=== PATIENT | female | born 1995 | race American Indian/Alaskan Native ===

== ENCOUNTER 2018-12-25 12:34 | Outpatient (CLI) | payer MEDICAID, OTHER ==
[2018-12-25] MEDS ORDERED: LACTATED RINGERS 1,000 ML ONE (14:15)
[2018-12-25 14:49] LABS: Hematocrit 35.3 % (30.3-42.9); Hemoglobin 12.1 gm/dl (10.1-14.3); Mean Corpuscular HGB Conc 34 % (30-34); Mean Corpuscular Volume 89 fl (79-97); Platelet Count 288 K/mm3 (140-440); Red Blood Count 3.98 M/mm3 (3.65-5.03); Red Cell Distribution Width 13.4 % (13.2-15.2)
[2018-12-25] MEDS ORDERED: SODIUM CHLORIDE 0.9% 500 ML 500 ML IV ONE (14:58)
[2018-12-25 15:05] LABS: Bacteria,Urine 4+ /HPF (Negative); Bilirubin,Urine NEG (Negative); Blood,Urine NEG (Negative); Color,Urine Yellow (Yellow); Protein,Urine <15 mg/dL mg/dL (Negative); Urobilinogen,Urine < 2.0 mg/dL (<2.0)
[2018-12-25 15:20] LABS: Alanine Aminotransferase 11 units/L (7-56); Uric Acid 3.3 mg/dL (3.5-7.6)
[2018-12-25 16:05] VITALS: BP 137/83
[2018-12-25] MEDS ORDERED: LACTATED RINGERS 1,000 ML IV ONE (18:00)
== END 2018-12-25 14:40 | disposition home or self-care (01) ==
LOC: TRG 12:34
PROVIDERS: ATTEND Obstetrics & Gynecology
DX: O13.3 Gestational [pregnancy-induced] hypertension without significant proteinuria, third trimester (principal); O47.03 False labor before 37 completed weeks of gestation, third trimester; Z3A.35 35 weeks gestation of pregnancy
CPT/HCPCS: 36415; 59025; 81001; 82565; 83615; 84450; 84460; 84550; 85027; J7120; 96360

== ENCOUNTER 2018-12-29 13:59 | Inpatient (IN) | payer MEDICAID ==
[2018-12-29 14:32] LABS: Hematocrit 35.1 % (30.3-42.9); Hemoglobin 11.8 gm/dl (10.1-14.3); Mean Corpuscular HGB Conc 34 % (30-34); Mean Corpuscular Volume 89 fl (79-97); Platelet Count 300 K/mm3 (140-440); Red Blood Count 3.95 M/mm3 (3.65-5.03); Red Cell Distribution Width 13.5 % (13.2-15.2)
[2018-12-29 14:49] LABS: Bacteria,Urine 2+ /HPF (Negative); Bilirubin,Urine NEG (Negative); Blood,Urine NEG (Negative); Color,Urine Straw (Yellow); Mucus,Urine FEW /HPF; Protein,Urine <15 mg/dL mg/dL (Negative); Urobilinogen,Urine < 2.0 mg/dL (<2.0)
[2018-12-29] MEDS ORDERED: BUTALB/ACETAMINOPHEN/CAFFEINE TAB PO PRN (14:54)
[2018-12-29 15:05] LABS: Alanine Aminotransferase 11 units/L (7-56); Uric Acid 3.5 mg/dL (3.5-7.6)
[2018-12-29] MEDS ORDERED: TERBUTALINE 1 MG/1 ML INJ IVP PRN (15:30)
[2018-12-29] MEDS ORDERED: ePHEDrine SULFATE 50 MG/1 ML INJ IV PRN (15:30)
[2018-12-29] MEDS ORDERED: ONDANSETRON 4 MG/2 ML INJ IV PRN (15:30)
[2018-12-29] MEDS ORDERED: fentaNYL 100 MCG/2 ML INJ IV PRN (15:30)
[2018-12-29] MEDS ORDERED: TERBUTALINE 1 MG/1 ML INJ SUB-Q PRN (15:30)
[2018-12-29] MEDS ORDERED: BUTORPHANOL 2 MG/1 ML INJ IV PRN (15:30)
[2018-12-29] MEDS ORDERED: MINERAL OIL 30 ML ORAL LIQD PO PRN (15:30)
[2018-12-29] MEDS ORDERED: NALOXONE 0.4 MG/1 ML INJ IV PRN (15:30)
[2018-12-29] MEDS ORDERED: OXYTOCIN 20 UNIT/1000ML DRIP 20 UNITS/1,000 ML BAG IV SCH (16:00)
[2018-12-29] MEDS ORDERED: AMPICILLIN/NS 2 GM/100 ML 2 GM/100 ML BAG IV ONE (16:00)
[2018-12-29] MEDS ORDERED: hydrALAZINE 20 MG/1 ML INJ IV PRN (16:18)
[2018-12-29] MEDS ORDERED: LIDOCAINE (2%) 20 MG/1 ML VIAL 20 ML MDV INFILTRATI ONE (16:30)
[2018-12-29] MEDS ORDERED: DINOPROSTONE 10 MG VAG SUPP VG ONE (16:30)
[2018-12-29] MEDS ORDERED: CALCIUM GLUCONATE 1000 MG/10 ML INJ IV ONE (17:00)
[2018-12-29] MEDS ORDERED: LACTATED RINGERS 1,000 ML IV SCH (17:00)
[2018-12-29] MEDS ORDERED: MAGNESIUM SULFATE 4 GM/100 ML BAG IV ONE (17:00)
[2018-12-29] MEDS: LACTATED RINGERS 1,000 ML IV SCH (17:52)
--- NOTE | 2018-12-29 18:04 | History and Physical Report ---
History of Present Illness Date of examination: 12/29/18 Date of admission: 12/29/18 16:20 Chief complaint: headache History of present illness: Pt is a 23 year old -[place] primigravida LAWANDA 01/18/19 at 37w1d who presents with headache since last night blood pressures in triage from 140-180s/70-100s. She denies blurry vision or RUQ pain. 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 She is GBS positive. Past History Past Medical History: no pertinent history Past Surgical History: other (knee surgery, ACL repair) [employer] History: abnormal PAP smear, chlamydia (remote from ), trichomonas (remote from ) Family/Genetic History: diabetes, heart disease, hypertension, cancer Social history: no significant social history - Obstetrical History Expected Date of Delivery: 01/18/19 Actual Gestation: 37 Week(s) 1 Day(s) : 1 Medications and Allergies Allergies Allergy/AdvReac Type Severity Reaction Status Date / Time pollen extracts Allergy Shortness Verified 12/25/18 13:26 of Breath Home Medications Medication Instructions Recorded Confirmed Last Taken Type HYDROcodone/APAP 5-325 [Douglas 1 each PO Q6HR PRN #12 tablet 08/09/14 Unknown Rx 5/325] Promethazine [Phenergan] 25 mg PO Q6H PRN #12 tablet 08/09/14 Unknown Rx raNITIdine HCl [Ranitidine] 150 mg PO Q12H #30 tablet 08/09/14 Unknown Rx One Daily Tablet 1 tab PO DAILY 12/25/18 12/25/18 12/23/18 12:00 History 1 tab Active Meds: Active Medications Acetaminophen/Butalbital/Caffeine (Fioricet) 2 tab PO Q4H PRN PRN Reason: Headache Last Admin: 12/29/18 15:10 Dose: 2 tab Documented by: Butorphanol Tartrate (Stadol) 2 mg IV Q2H PRN PRN Reason: Pain , Severe (7-10) Ephedrine Sulfate (Ephedrine Sulfate) 10 mg IV Q2M PRN PRN Reason: Hypotension Fentanyl (Sublimaze) 100 mcg IV Q2H PRN PRN Reason: Labor Pain Hydralazine HCl (Apresoline) 5 mg IV Q30MIN PRN PRN Reason: Hypertension Oxytocin/Sodium Chloride (Pitocin/Ns 20 Unit/1000ml Drip) 20 units in 1,000 mls @ 125 mls/hr IV DIRECT DEANA Oxytocin/Sodium Chloride (Pitocin/Ns 30 Unit/500ml) 30 units in 500 mls @ 2 mls/hr IV TITR DEANA; Protocol Lactated Ringer's (Lactated Ringers) 1,000 mls @ 125 mls/hr IV DIRECT DEANA Last Admin: 12/29/18 17:52 Dose: 125 mls/hr Documented by: Ampicillin Sodium (Ampicillin/Ns 1 Gm/50 Ml) 1 gm in 50 mls @ 100 mls/hr IV Q4H DEANA; Protocol Lactated Ringer's (Lactated Ringers) 1,000 mls @ 125 mls/hr IV DIRECT DEANA Magnesium Sulfate (Magnesium Sulfate 40gm/1000ml) 40 gm in 1,000 mls @ 50 mls/hr IV DIRECT DEANA Mineral Oil (Mineral Oil) 30 ml PO QHS PRN PRN Reason: Constipation Naloxone HCl (Naloxone) 0.1 mg IV Q2MIN PRN PRN Reason: Res Rate </= 8 or 02 SAT < 92% Ondansetron HCl (Zofran) 4 mg IV Q8H PRN PRN Reason: Nausea And Vomiting Terbutaline Sulfate (Brethine) 0.25 mg SUB-Q ONCE PRN PRN Reason: Hyperstimulation/Hypertonicity Terbutaline Sulfate (Brethine) 0.25 mg IVP ONCE PRN PRN Reason: Hyperstimulation/Hypertonicity Review of Systems All systems: negative - Vital Signs Vital signs: Vital Signs Pulse BP 82 138/77 12/29/18 14:28 12/29/18 14:28 Temp Pulse Resp BP Pulse Ox 98.1 F 87 18 177/100 91 12/29/18 14:33 12/29/18 16:15 12/29/18 15:10 12/29/18 16:15 12/29/18 15:55 - Physical Exam Breasts: Positive: deferred Cardiovascular: Regular rate Lungs: Positive: Clear to auscultation Abdomen: Positive: soft (obese, gravid) Genitourinary (Female): Positive: normal external genitalia Uterus: Positive: enlarged (gravid) Extremities: Positive: edema (trace) - Obstetrical FHR: auscultation normal Uterine Contraction Monitor Mode: External Cervical Dilatation: 0.5 Uterine Contraction Pattern: Irregular Uterine Tone Measurement Phase: Resting Uterine Contraction Intensity: Mild Results Result Diagrams: 12/29/18 14:12 12/29/18 14:12 Abnormal lab results 12/29/18 12/29/18 12/29/18 Range/Units 14:12 14:12 Unknown WBC 11.5 H (4.5-11.0) K/mm3 Creatinine 0.6 L (0.7-1.2) mg/dL Lactate Dehydrogenase 197 H (91-180) units/L Urine pH 8.0 H (5.0-7.0) All other labs normal. Assessment and Plan A: IUP at 37w1d PIH with severe features Obesity GBS positive P: Admit to labor and delivery Magnesium sulfate for seizure prophylaxis PIH panel GBS prophylaxis Begin induction of labor with cervidil Closely monitor clinical status
[2018-12-29] MEDS: MAGNESIUM SULFATE 40GM/1000ML 40 GM/1,000 ML BAG IV SCH (18:26)
[2018-12-30] MEDS ORDERED: FAMOTIDINE 20 MG/2 ML INJ IV ONE ×3 (00:01→21:24)
[2018-12-30] MEDS: LACTATED RINGERS 1,000 ML IV SCH (06:40)
[2018-12-30] MEDS ORDERED: miSOPROStol 25 MCG TAB VG ONE (07:45)
--- NOTE | 2018-12-30 09:26 | Event Note ---
Date: 12/30/18 Pt very uncomfortable with contractions. Category II tracing. SVE: 3.5/90/- 2/BBOW. Continue routine intrapartum care. Epidural for pain control. Continue to monitor clinically.
[2018-12-30] MEDS ORDERED: ePHEDrine SULFATE 50 MG/1 ML INJ IV PRN (09:33)
[2018-12-30] MEDS ORDERED: NALOXONE 2 MG/2 ML INJ IV PRN (09:33)
--- NOTE | 2018-12-30 09:33 | Anesthesia Consultation ---
Anesthesia Consult and Med Hx Date of service: 12/30/18 - Airway Anesthetic Teeth Evaluation: Good ROM Head & Neck: Adequate Mental/Hyoid Distance: Adequate Mallampati Class: Class II Intubation Access Assessment: Probably Good - Pulmonary Exam CTA: Yes - Cardiac Exam Cardiac Exam: RRR - Pre-Operative Health Status ASA Pre-Surgery Classification: ASA3 Proposed Anesthetic Plan: Epidural - Pulmonary Hx Asthma: No COPD: No Hx Pneumonia: No - Cardiovascular System Hx Hypertension: Yes (PIH) - Central Nervous System Hx Seizures: No Hx Psychiatric Problems: No - Endocrine Hx Renal Disease: No Hx End Stage Renal Disease: No Hx Hypothyroidism: No Hx Hyperthyroidism: No - Hematic Hx Anemia: No Hx Sickle Cell Disease: No - Other Systems Hx Alcohol Use: Yes (social use prior to )
[2018-12-30 09:54] LABS: Hematocrit 35.7 % (30.3-42.9); Hemoglobin 11.9 gm/dl (10.1-14.3); Mean Corpuscular HGB Conc 33 % (30-34); Mean Corpuscular Volume 89 fl (79-97); Platelet Count 301 K/mm3 (140-440); Red Blood Count 4.01 M/mm3 (3.65-5.03); Red Cell Distribution Width 13.4 % (13.2-15.2)
[2018-12-30] MEDS ORDERED: SODIUM CHLORIDE P/F VIAL 10 ML 10 ML ONE (09:55)
[2018-12-30] MEDS ORDERED: DEXMEDETOMIDINE 200 MCG/2 ML VIAL IV ONE ×3 (09:55→18:01)
[2018-12-30 10:16] LABS: Basophils # (Auto) 0.1 K/mm3 (0.0-0.1); Basophils % (Auto) 0.4 % (0.0-1.8); Lymphocytes # (Auto) 1.3 K/mm3 (1.2-5.4); Lymphocytes % (Auto) 7.3 % (13.4-35.0); Monocytes # (Auto) 0.8 K/mm3 (0.0-0.8); Monocytes % (Auto) 4.3 % (0.0-7.3)
[2018-12-30] MEDS: fentaNYL-BUPIV 2 MCG/ML-0.125% 200 MCG/100 ML BAG EPIDURAL SCH ×2 (11:00→18:01)
[2018-12-30] MEDS: AMPICILLIN/NS 1 GM/50 ML 1 GM/50 ML BAG IV SCH ×2 (12:51→18:41)
[2018-12-30] MEDS: MAGNESIUM SULFATE 40GM/1000ML 40 GM/1,000 ML BAG IV SCH (13:00)
[2018-12-30] MEDS: OXYTOCIN DRIP 30 UNITS/500 ML BAG IV SCH ×2 (14:16→14:57)
[2018-12-30] MEDS ORDERED: BUPIVACAINE/PF (0.5%) 5 MG/1 ML 30 ML VIAL INFILTRATI ONE (18:01)
[2018-12-30] MEDS ORDERED: SODIUM CHLORIDE 0.9% 1000 ML 1,000 ML ONE (20:54)
--- NOTE | 2018-12-30 21:17 | Event Note ---
Date: 12/30/18 Pt uncomfortable with epidural. SVE: /-1. heart tones with repetitive late decelerations. Plan to proceed with delivery. Anesthesia aware.
[2018-12-30] MEDS ORDERED: METOCLOPRAMIDE 10 MG/2 ML INJ IV ONE (21:20)
[2018-12-30] MEDS ORDERED: BICITRA ORAL LIQD 30ML PO ONE (21:20)
[2018-12-30] MEDS ORDERED: METOCLOPRAMIDE 10 MG/2 ML INJ ONE (21:24)
[2018-12-30] MEDS ORDERED: BICITRA ORAL LIQD 30ML ONE (21:24)
[2018-12-30] MEDS ORDERED: miSOPROStol 200 MCG TAB ONE (21:27)
[2018-12-30] MEDS ORDERED: ceFAZolin/STERILE WATER 2 GM/20 ML SYRINGE IV ONE (21:35)
[2018-12-30] MEDS ORDERED: SODIUM CHLORIDE 0.9% IRR 1,500 ML BOTTLE IR ONE (21:35)
[2018-12-30] MEDS ORDERED: WATER FOR IRRIG STERILE 1,500 ML BOTTLE IR ONE (21:35)
[2018-12-30] MEDS ORDERED: OXYTOCIN 10 UNIT/1 ML INJ ONE (21:48)
[2018-12-30] MEDS ORDERED: KETOROLAC 30 MG/1 ML INJ ONE (21:48)
[2018-12-30] MEDS ORDERED: LACTATED RINGERS 1,000 ML IV SCH (22:00)
[2018-12-30] MEDS ORDERED: OXYTOCIN 20 UNIT/1000ML DRIP 20 UNITS/1,000 ML BAG IV SCH (22:00)
[2018-12-30] MEDS ORDERED: ceFAZolin/Water 2 GM/20 ML 2 GM/20 ML SYRINGE IV NR (22:00)
[2018-12-30] MEDS: OXYTOCIN 20 UNIT/1000ML DRIP 20 UNITS/1,000 ML BAG IV SCH (22:05)
[2018-12-30] MEDS ORDERED: CARBOPROST TROMETHAMINE 250 MCG/1 ML INJ IM ONE (22:08)
--- NOTE | 2018-12-30 22:54 | Operative Report ---
Operative Report Operative Report: Date of procedure: December Preoperative diagnosis: 1) IUP at 37w1d 2) Nonreassuring status 3)Pr eeclampsia with severe features 4) Obesity Postoperative diagnosis: Same Procedure:Primary low transverse section Surgeon: Cassy Louis M.D. Anesthesia: Regional Findings: 1) Viable male , Apgars 8 and 9, weight 3315g, (7 lb 5 oz) in cephalic presentation. Occiput posterior. Nuchal cord x 1. 2) Normal-appearing uterus ovaries and tubes Estimated blood loss: 700 mL IV fluids:600 mL Urine output: 300 mL, clear at the end of the procedure Drains: Garcia to gravity Specimens: Placenta to pathology Complications: Counts correct x 3 Disposition: Stable to PACU Indication for procedure: Pt is a 23 year old primigravida at 37w2d who was admitted for induction of labor secondary to preeclampsia with severe features. She progressed to 8 cm then began to have repetitive late decelerations. The decision was made to proceed to delivery. Operation in detail: After the risks, benefits, alternatives and complications were explained to the patient she gave informed consent for the procedure. She was subsequently taken to the operating room where regional anesthesia was noted to be adequate. She was subsequently placed in the dorsal supine position with leftward tilt and prepped and draped in a normal sterile fashion. heart tones were noted prior to incision. A timeout was performed. A Pfannenstiel skin incision was made with the knife and carried down to the layer of the fascia with the Bovie. The fascia was incised in the midline and the fascial incision was extended bilaterally with the Bovie. The fascial incision was then stretched. The rectus muscles were then in the midline. The peritoneum was then entered bluntly. The peritoneal incision was extended with good visualization of the bladder. The peritoneal incision was th en stretched. An Emerson retractor was placed. The bladder blade was placed. The vesicouterine peritoneum was grasped with smooth pickups and incised with Metzenbaum scissors. Metzenbaum scissors were used to extend the incision bilaterally. The bladder flap was then created digitally and the bladder blade was replaced. A transverse incision was made in the lower uterine segment with a knife and extended bilaterally with the bandage scissors. The head was delivered without difficulty followed by shoulders and body. was bulb suctioned at delivery. The cord was clamped and cut and the was handed to NICU staff in attendance. Cord blood was collected. The placenta was then delivered manually. The uterus was then cleared of all clots and debris. The hysterotomy was then reapproximated with 0 Vicryl in a running locked fashion. A second layer of the same suture was used in an imbricating fashion. The hysterotomy was inspected and hemostasis was noted. The gutters were irrigated and cleared of all clots and debris. The hysterotomy was again inspected and noted to be hemostatic. Surgicel was placed over the hysterotomy. The peritoneum was reapproximated with 2-0 Vicryl in a running fashion incorporating the rectus muscles. The fascia was reapproximated with 0-Vicryl in a running fashion. The subcutaneous tissue was reapproximated with 3-0 Vicryl in a running fashion. The skin was reapproximated with 4-0 Vicryl in a subcuticular fashion. The incision was then covered with steri strips and a pressure dressing. The procedure was then ended. The patient tolerated the procedure well and was taken to the PACU in stable condition. All instrument, lap, and needle counts were correct 3.
--- NOTE | 2018-12-30 22:54 | Procedure Note ---
OB Delivery Note - Delivery Date of Delivery: 12/30/18 Surgeon: GIAN BERGER Estimated blood loss: other (700 mL) - Section Preop diagnosis: nonreassuring FHR tracing Postop diagnosis: same section procedure: section, primary low transverse Disposition: PACU Narrative: Please see operative report. - Infant A at 1 minute: 8 at 5 minutes: 9 Gender: Male (3315g (7lb 5oz) @ 2202 pm)
[2018-12-30] MEDS ORDERED: NalbUPHINE 10 MG/1 ML INJ IV PRN (22:56)
--- NOTE | 2018-12-30 22:56 | Post Anesthesia Evaluation ---
- Post Anesthesia Evaluation Patient Participated: Yes Airway Patent: Yes Stable Respiratory Function: Yes Nausea/Vomiting: No Temp > 96.8F: Yes Pain Manageable: Yes Adequeate Hydration: Yes Anesthesia Complications: No Block Receding Appropriately: Yes
[2018-12-30] MEDS ORDERED: ACETAMINOPHEN 500 MG TAB PO SCH (23:00)
[2018-12-31] MEDS ORDERED: MORPHINE 4 MG/1 ML INJ IV PRN (00:09)
[2018-12-31] MEDS ORDERED: LANOLIN/ZINC/DIMETHICONE (LANSINOH) 7 GM TP PRN (00:09)
[2018-12-31] MEDS ORDERED: WITCH HAZEL/ GLYCERIN PAD TP PRN (00:09)
[2018-12-31] MEDS ORDERED: NALOXONE 0.4 MG/1 ML INJ IV PRN (00:09)
[2018-12-31] MEDS: OXYTOCIN 20 UNIT/1000ML DRIP 20 UNITS/1,000 ML BAG IV SCH (01:04)
[2018-12-31] MEDS: KETOROLAC 30 MG/1 ML INJ IV SCH ×4 (01:05→17:57)
[2018-12-31 02:06] LABS: Hematocrit 33.3 % (30.3-42.9); Hemoglobin 11.2 gm/dl (10.1-14.3); Mean Corpuscular HGB Conc 34 % (30-34); Mean Corpuscular Volume 90 fl (79-97); Platelet Count 330 K/mm3 (140-440); Red Blood Count 3.72 M/mm3 (3.65-5.03); Red Cell Distribution Width 13.4 % (13.2-15.2)
[2018-12-31 02:19] LABS: Alanine Aminotransferase 8 units/L (7-56)
[2018-12-31] MEDS ORDERED: MAGNESIUM SULFATE 40GM/1000ML 40 GM/1,000 ML BAG IV SCH (03:26)
[2018-12-31 03:27] LABS: Uric Acid 5.4 mg/dL (3.5-7.6)
--- NOTE | 2018-12-31 09:21 | Progress Note ---
Assessment and Plan A/P POD2 severe pree on mag continue for 24 hr PP on mag continue following mag level UA and cbc this am Subjective - Subjective Date of service: 12/31/18 Principal diagnosis: [facility] Patient reports: appetite normal, voiding normally, pain well controlled, flatus : doing well Objective - Vital Signs Latest vital signs: Vital Signs Temp Pulse Resp BP BP Pulse Ox 12/31/18 09:13 86 96 12/31/18 09:08 90 96 12/31/18 09:03 100 H 136/85 96 12/31/18 08:58 88 96 12/31/18 08:53 89 96 12/31/18 08:48 111 H 97 12/31/18 08:43 93 H 95 12/31/18 08:38 88 97 12/31/18 08:33 93 H 139/73 95 12/31/18 08:28 97 H 96 12/31/18 08:23 89 97 12/31/18 08:18 84 97 12/31/18 08:13 113 H 97 12/31/18 08:08 70 98 12/31/18 08:03 90 128/66 96 12/31/18 07:58 85 96 12/31/18 07:53 92 H 98 12/31/18 07:48 89 97 12/31/18 07:43 89 95 12/31/18 07:38 85 97 12/31/18 07:33 97 H 146/83 96 12/31/18 07:28 94 H 97 12/31/18 07:23 85 97 12/31/18 07:18 84 97 12/31/18 07:13 93 H 97 12/31/18 07:08 77 96 12/31/18 07:03 83 139/79 96 12/31/18 06:58 85 97 12/31/18 06:53 82 98 12/31/18 06:52 97 H 94 12/31/18 06:48 87 97 12/31/18 06:43 83 98 12/31/18 06:38 82 18 98 12/31/18 06:35 78 143/67 12/31/18 06:34 85 161/74 12/31/18 06:33 85 97 12/31/18 06:28 81 98 12/31/18 06:23 87 98 12/31/18 06:18 83 98 12/31/18 06:13 79 98 12/31/18 06:08 90 98 12/31/18 06:03 86 125/72 98 12/31/18 05:58 80 97 12/31/18 05:53 87 97 12/31/18 05:48 85 93 12/31/18 05:47 85 0 L 12/31/18 05:36 105 H 97 12/31/18 05:33 96 H 131/61 12/31/18 05:25 83 96 12/31/18 05:24 77 0 L 12/31/18 05:20 90 100 12/31/18 05:15 87 98 12/31/18 05:14 82 92 12/31/18 05:10 90 93 12/31/18 05:08 88 92 12/31/18 05:05 87 99 12/31/18 05:03 96 H 138/76 12/31/18 05:00 83 98 12/31/18 04:55 89 94 12/31/18 04:51 84 94 12/31/18 04:50 85 94 12/31/18 04:45 86 95 12/31/18 04:40 82 95 12/31/18 04:35 81 95 12/31/18 04:33 78 135/70 12/31/18 04:30 80 96 12/31/18 04:25 77 96 12/31/18 04:20 78 97 12/31/18 04:15 88 97 12/31/18 04:10 83 97 12/31/18 04:05 77 99 12/31/18 04:03 72 141/79 12/31/18 04:00 92 H 98 12/31/18 03:55 83 98 12/31/18 03:52 86 74 L 12/31/18 03:50 75 100 12/31/18 03:45 86 99 12/31/18 03:40 88 100 12/31/18 03:35 89 97 12/31/18 03:33 82 131/67 12/31/18 03:30 84 96 12/31/18 03:25 83 95 12/31/18 03:20 89 96 12/31/18 03:15 89 95 12/31/18 03:10 88 96 12/31/18 03:06 85 94 12/31/18 03:05 91 H 97 12/31/18 03:03 84 137/72 12/31/18 03:00 88 97 12/31/18 02:55 86 97 12/31/18 02:50 87 96 12/31/18 02:45 78 97 12/31/18 02:40 92 H 97 12/31/18 02:35 78 97 12/31/18 02:33 99 H 136/81 12/31/18 02:32 98.6 F 99 H 18 136/81 97 12/31/18 02:03 83 124/65 12/31/18 01:33 76 144/81 12/31/18 01:05 18 12/30/18 23:50 98.7 F 74 17 119/69 98 12/30/18 23:45 82 15 116/76 97 12/30/18 23:30 82 15 116/70 99 12/30/18 23:15 75 18 124/65 100 12/30/18 23:11 79 26 H 132/57 98 12/30/18 23:06 87 16 125/56 96 12/30/18 23:01 80 10 L 115/50 99 12/30/18 22:50 98.7 F 85 22 105/53 100 12/30/18 21:17 78 100 12/30/18 21:12 95 H 100 12/30/18 21:09 88 120/65 12/30/18 21:07 82 99 12/30/18 21:02 89 100 12/30/18 20:57 92 H 100 12/30/18 20:54 78 115/59 12/30/18 20:52 85 100 12/30/18 20:47 71 100 12/30/18 20:42 68 99 12/30/18 20:40 72 116/61 12/30/18 20:37 75 99 12/30/18 20:32 74 100 12/30/18 20:27 83 95 12/30/18 20:25 69 118/67 12/30/18 20:22 73 99 12/30/18 20:17 69 96 12/30/18 20:12 66 97 12/30/18 20:10 68 109/53 12/30/18 20:07 76 100 12/30/18 20:02 72 100 12/30/18 20:01 75 77 L 12/30/18 19:57 70 98 11/24/19 19:55 74 124/65 12/30/18 19:52 72 110/58 96 12/30/18 19:51 70 16 110/58 97 12/30/18 19:47 66 99 12/30/18 19:42 68 97 12/30/18 19:37 76 96 12/30/18 19:32 70 98 12/30/18 19:27 71 99 12/30/18 19:24 71 100/55 12/30/18 19:22 64 100 12/30/18 19:17 72 99 12/30/18 19:15 97.4 F L 12/30/18 19:12 66 95 12/30/18 19:09 62 101/50 12/30/18 19:07 66 95 12/30/18 19:04 68 95/52 12/30/18 19:02 66 97 12/30/18 18:59 65 92/51 12/30/18 18:57 66 95 12/30/18 18:54 65 94 12/30/18 18:53 64 88/51 12/30/18 18:52 60 85/45 96 12/30/18 18:51 64 83/41 12/30/18 18:48 63 90/51 12/30/18 18:47 76 99 12/30/18 18:42 71 98 12/30/18 18:41 71 121/59 12/30/18 18:37 73 95 12/30/18 18:32 87 98 12/30/18 18:27 83 96 12/30/18 18:22 94 H 98 12/30/18 18:18 87 94 12/30/18 18:17 87 95 12/30/18 18:12 81 97 12/30/18 18:11 85 134/83 12/30/18 18:07 94 H 97 12/30/18 18:02 91 H 99 12/30/18 17:57 80 99 12/30/18 17:52 89 98 12/30/18 17:47 84 98 12/30/18 17:46 81 136/78 12/30/18 17:42 81 99 12/30/18 17:37 81 99 12/30/18 17:32 96 H 97 12/30/18 17:27 82 99 12/30/18 17:22 83 99 12/30/18 17:17 84 99 12/30/18 17:14 100 H 91 12/30/18 17:12 101 H 96 12/30/18 17:09 99 H 93 12/30/18 17:07 104 H 95 12/30/18 17:03 99 H 91 12/30/18 17:02 96 H 96 12/30/18 16:57 100 H 98 12/30/18 16:52 98 H 97 12/30/18 16:51 98 H 94 12/30/18 16:47 109 H 95 12/30/18 16:43 102 H 134/63 12/30/18 16:42 94 H 100 12/30/18 16:37 94 H 99 12/30/18 16:32 98 H 99 12/30/18 16:27 109 H 99 12/30/18 16:22 91 H 99 12/30/18 16:17 92 H 98 12/30/18 16:14 105 H 93 12/30/18 16:12 100 H 95 12/30/18 16:08 94 H 92 12/30/18 16:07 92 H 98 12/30/18 16:03 102 H 91 12/30/18 16:02 89 97 12/30/18 15:57 90 96 12/30/18 15:52 89 98 12/30/18 15:47 87 93 12/30/18 15:46 86 93 12/30/18 15:42 100 H 98 12/30/18 15:41 89 116/56 12/30/18 15:40 84 94 12/30/18 15:37 83 96 12/30/18 15:32 87 96 12/30/18 15:27 80 96 12/30/18 15:22 78 97 12/30/18 15:17 80 97 12/30/18 15:12 80 96 12/30/18 15:07 95 H 96 12/30/18 15:02 85 96 12/30/18 14:57 76 96 12/30/18 14:52 89 96 12/30/18 14:47 77 95 12/30/18 14:45 78 94 12/30/18 14:42 76 129/58 95 12/30/18 14:37 79 95 12/30/18 14:32 74 95 12/30/18 14:27 91 H 96 12/30/18 14:22 80 95 12/30/18 14:17 83 96 12/30/18 14:12 91 H 96 12/30/18 14:07 81 96 12/30/18 14:02 74 96 12/30/18 13:57 82 96 12/30/18 13:52 95 H 96 12/30/18 13:47 74 96 12/30/18 13:43 77 123/63 12/30/18 13:42 80 96 12/30/18 13:37 75 97 12/30/18 13:32 70 96 12/30/18 13:27 83 95 12/30/18 13:22 77 96 12/30/18 13:17 74 100 12/30/18 13:12 67 99 12/30/18 13:10 98.1 F 12/30/18 13:07 81 99 12/30/18 13:02 72 99 12/30/18 12:57 69 98 12/30/18 12:52 72 96 12/30/18 12:47 70 98 12/30/18 12:42 69 98 12/30/18 12:37 70 98 12/30/18 12:32 79 98 12/30/18 12:27 68 98 12/30/18 12:22 68 99 12/30/18 12:17 66 99 12/30/18 12:13 70 94 12/30/18 12:12 69 95 12/30/18 12:07 76 96 12/30/18 12:02 77 96 12/30/18 11:59 71 102/50 12/30/18 11:57 79 97 12/30/18 11:52 73 97 12/30/18 11:47 74 98 12/30/18 11:44 79 130/56 12/30/18 11:42 74 100 12/30/18 11:40 18 118/61 12/30/18 11:37 88 100 12/30/18 11:32 66 98 12/30/18 11:27 76 90/46 100 12/30/18 11:22 72 100 12/30/18 11:17 79 100 12/30/18 11:12 79 98 12/30/18 11:07 80 98 12/30/18 11:04 78 83 L 12/30/18 11:02 78 87 12/30/18 10:59 78 93 12/30/18 10:57 83 100 12/30/18 10:52 86 95 12/30/18 10:51 80 94 12/30/18 10:47 85 98 12/30/18 10:42 86 111/58 97 12/30/18 10:37 86 97 12/30/18 10:34 81 127/57 12/30/18 10:32 89 94 12/30/18 10:31 91 H 109/56 12/30/18 10:27 87 95 12/30/18 10:26 91 H 94 12/30/18 10:25 87 118/61 12/30/18 10:22 100 H 125/68 12/30/18 10:21 97 H 97 12/30/18 10:19 103 H 122/65 12/30/18 10:16 100 H 123/67 97 12/30/18 10:13 102 H 139/87 12/30/18 10:11 98 H 98 12/30/18 10:06 100 12/30/18 09:59 93 H 99 12/30/18 09:54 89 99 12/30/18 09:49 97 H 100 12/30/18 09:44 104 H 97 12/30/18 09:41 96 H 119/72 12/30/18 09:39 94 H 98 12/30/18 09:34 105 H 99 12/30/18 09:29 100 H 98 12/30/18 09:24 98 H 98 12/30/18 09:19 102 H 98 Intake and Output 12/30/18 12/31/18 12/31/18 23:59 07:59 15:59 Intake Total 826.867 4.167 Output Total 850 1150 Balance -23.133 -1145.833 Intake: IV 826.867 4.167 PITOCin/NS 20 UNIT/1000ML 4.167 DRIP 20 units In 1,000 ml @ 250 mls/hr IV DIRECT DEANA Rx#:[id number] PITOCin/NS 30 UNIT/500ML 26.867 30 units In 500 ml @ 2 mls/hr IV TITR DEANA Rx#: [id number] Output: Urine 850 1150 Indwelling Catheter 1150 Other: Total, Output Amount 400 Estimated Blood Loss 700 - Exam Breasts: Present: normal Cardiovascular: Present: Regular rate, Normal S1 Lungs: Present: Clear to auscultation, Normal air movement Abdomen: Present: normal appearance, soft, normal bowel sounds. Absent: distention, tenderness, guarding Vulva: both: normal Uterus: Present: normal, firm, fundal height below umbilicus. Absent: bogginess, tenderness Extremities: Present: normal Deep Tendon Reflex Grade: Normal +2 Incision: Present: normal, dry, intact - Labs Labs: Abnormal lab results 12/30/18 12/30/18 12/30/18 Range/Units 09:20 12:40 19:39 WBC 17.1 H (4.5-11.0) K/mm3 Lymph % (Auto) 7.3 L (13.4-35.0) % Seg Neutrophils % 88.0 H (40.0-70.0) % Seg Neutrophils # 15.7 H (1.8-7.7) K/mm3 Magnesium 6.30 H 6.20 H (1.7-2.3) mg/dL Lactate Dehydrogenase (91-180) units/L 12/31/18 12/31/18 12/31/18 Range/Units 01:20 01:20 01:20 WBC 18.2 H (4.5-11.0) K/mm3 Lymph % (Auto) (13.4-35.0) % Seg Neutrophils % (40.0-70.0) % Seg Neutrophils # (1.8-7.7) K/mm3 Magnesium 4.40 H (1.7-2.3) mg/dL Lactate Dehydrogenase 246 H (91-180) units/L
[2018-12-31 12:03] LABS: Basophils # (Auto) 0.1 K/mm3 (0.0-0.1); Basophils % (Auto) 0.4 % (0.0-1.8); Eosinophils % (Auto) 0.2 % (0.0-4.3); Hematocrit 33.3 % (30.3-42.9); Hemoglobin 11.2 gm/dl (10.1-14.3); Lymphocytes # (Auto) 1.7 K/mm3 (1.2-5.4); Mean Corpuscular HGB Conc 34 % (30-34); Mean Corpuscular Volume 90 fl (79-97); Monocytes % (Auto) 5.5 % (0.0-7.3); Platelet Count 330 K/mm3 (140-440); Red Blood Count 3.73 M/mm3 (3.65-5.03); Red Cell Distribution Width 13.7 % (13.2-15.2)
[2018-12-31] MEDS: oxyCODONE /ACETAMINOPHEN 5-325MG TAB PO PRN (18:10)
[2018-12-31] MEDS ORDERED: PREGABALIN 75 MG CAP PO SCH (22:00)
[2019-01-01] MEDS ORDERED: MEASLES, MUMPS & RUBELLA 12,500 UNIT/0.5 ML VACCINE SUB-Q ONE (00:10)
[2019-01-01] MEDS: oxyCODONE /ACETAMINOPHEN 5-325MG TAB PO PRN ×3 (03:49→23:48)
[2019-01-01] MEDS: KETOROLAC 30 MG/1 ML INJ IV SCH (04:58)
[2019-01-01] MEDS ORDERED: TETANUS,DIPH,PERTUSS(ACELL) VACCINE 0.5 ML SYRINGE IM ONE (06:00)
[2019-01-01 10:26] LABS: Basophils % (Auto) 0.3 % (0.0-1.8); Eosinophils # (Auto) 0.2 K/mm3 (0.0-0.4); Eosinophils % (Auto) 1.4 % (0.0-4.3); Hematocrit 32.6 % (30.3-42.9); Hemoglobin 10.5 gm/dl (10.1-14.3); Lymphocytes # (Auto) 2.1 K/mm3 (1.2-5.4); Mean Corpuscular HGB Conc 32 % (30-34); Mean Corpuscular Volume 90 fl (79-97); Monocytes # (Auto) 0.8 K/mm3 (0.0-0.8); Monocytes % (Auto) 5.6 % (0.0-7.3); Platelet Count 317 K/mm3 (140-440); Red Blood Count 3.63 M/mm3 (3.65-5.03); Red Cell Distribution Width 13.5 % (13.2-15.2)
[2019-01-01] MEDS: FERROUS SULFATE 325 MG TAB PO SCH (11:14)
--- NOTE | 2019-01-01 12:28 | Progress Note ---
Assessment and Plan A/P POD2 severe pree on mag continue for 24 hr PP on mag mag off watch blood pressure closely Subjective - Subjective Date of service: 01/01/19 Principal diagnosis: Primary [facility] Patient reports: appetite normal, voiding normally, pain well controlled, flatus, ambulating normally [place]: doing well Objective - Vital Signs Latest vital signs: Vital Signs Temp Pulse Resp BP BP Pulse Ox 01/01/19 07:48 97.9 F 80 18 139/92 01/01/19 05:45 98.6 F 86 16 137/78 01/01/19 04:49 18 01/01/19 04:46 155 H 0 L 01/01/19 04:29 92 H 94 01/01/19 04:28 84 94 01/01/19 04:24 97 H 95 01/01/19 04:19 93 H 97 01/01/19 04:14 94 H 97 01/01/19 04:11 101 H 94 01/01/19 04:09 84 97 01/01/19 04:04 93 H 97 01/01/19 03:59 99 H 96 01/01/19 03:58 90 94 01/01/19 03:54 99 H 97 01/01/19 03:49 101 H 18 97 01/01/19 03:44 98 H 97 01/01/19 03:39 94 H 97 01/01/19 03:34 96 H 136/78 94 01/01/19 03:31 99 H 92 01/01/19 03:29 94 H 98 01/01/19 03:25 98 H 94 01/01/19 03:24 88 96 01/01/19 03:19 87 96 01/01/19 03:14 110 H 96 01/01/19 03:09 85 97 01/01/19 03:04 96 H 98 01/01/19 02:59 88 96 01/01/19 02:54 84 96 01/01/19 02:49 85 96 01/01/19 02:44 84 96 01/01/19 02:39 81 96 01/01/19 02:34 81 132/76 97 01/01/19 02:29 82 96 01/01/19 02:24 81 97 01/01/19 02:19 85 97 01/01/19 02:14 93 H 97 01/01/19 02:09 85 97 01/01/19 02:04 80 97 01/01/19 01:59 87 95 01/01/19 01:54 93 H 97 01/01/19 01:49 102 H 93 01/01/19 01:48 90 87 01/01/19 01:44 83 96 01/01/19 01:39 91 H 97 01/01/19 01:34 83 140/84 99 01/01/19 01:30 92 H 93 01/01/19 01:29 98 H 97 01/01/19 01:24 97 H 96 01/01/19 01:19 82 88 01/01/19 01:14 86 97 01/01/19 01:11 87 93 01/01/19 01:09 79 98 01/01/19 01:04 86 97 01/01/19 00:59 84 96 01/01/19 00:54 84 96 01/01/19 00:49 82 97 01/01/19 00:44 80 97 01/01/19 00:39 82 93 01/01/19 00:37 88 94 01/01/19 00:34 85 134/76 96 01/01/19 00:29 93 H 94 01/01/19 00:24 93 H 93 01/01/19 00:19 90 95 01/01/19 00:17 94 H 94 01/01/19 00:14 89 96 01/01/19 00:09 92 H 98 01/01/19 00:04 98.3 F 83 91 12/31/18 23:59 86 98 12/31/18 23:54 82 97 12/31/18 23:49 86 93 12/31/18 23:44 90 95 12/31/18 23:41 88 94 12/31/18 23:39 89 97 12/31/18 23:34 75 136/83 96 12/31/18 23:29 85 95 12/31/18 23:26 87 94 12/31/18 23:24 81 96 12/31/18 23:19 84 95 12/31/18 23:14 76 96 12/31/18 23:13 82 92 12/31/18 23:09 74 96 12/31/18 23:04 90 97 12/31/18 23:03 97 H 87 12/31/18 22:59 78 99 12/31/18 22:54 84 97 12/31/18 22:49 88 97 12/31/18 22:44 73 95 12/31/18 22:39 82 98 12/31/18 22:35 83 86 12/31/18 22:34 71 125/74 97 12/31/18 22:29 78 97 12/31/18 22:24 73 98 12/31/18 22:19 72 98 12/31/18 22:18 81 91 12/31/18 22:14 79 95 12/31/18 22:09 83 96 12/31/18 22:04 87 97 12/31/18 21:59 77 97 12/31/18 21:54 85 98 12/31/18 21:49 84 97 12/31/18 21:44 83 97 12/31/18 21:40 88 93 12/31/18 21:39 86 96 12/31/18 21:34 77 128/71 96 12/31/18 21:33 88 94 12/31/18 21:29 90 95 12/31/18 21:24 87 96 12/31/18 21:19 81 95 12/31/18 21:18 79 94 12/31/18 21:14 86 97 12/31/18 21:11 101 H 89 12/31/18 21:09 74 98 12/31/18 21:04 80 98 12/31/18 20:59 94 H 91 12/31/18 20:54 76 99 12/31/18 20:49 92 H 97 12/31/18 20:44 88 96 12/31/18 20:39 83 98 12/31/18 20:34 79 130/78 98 12/31/18 20:29 86 97 12/31/18 20:24 92 H 96 12/31/18 20:19 87 96 12/31/18 20:14 87 98 12/31/18 20:09 83 96 12/31/18 20:04 99 H 97 12/31/18 19:59 87 98 12/31/18 19:56 95 H 93 12/31/18 19:54 92 H 96 12/31/18 19:51 89 91 12/31/18 19:49 87 97 12/31/18 19:44 96 H 95 12/31/18 19:39 104 H 93 12/31/18 19:34 81 132/76 97 12/31/18 19:29 94 H 96 12/31/18 19:24 89 97 12/31/18 19:19 93 H 96 12/31/18 19:14 95 H 96 12/31/18 19:09 86 97 12/31/18 19:04 88 97 12/31/18 18:59 87 97 12/31/18 18:54 86 96 12/31/18 18:49 85 98 12/31/18 18:44 93 H 97 12/31/18 18:39 87 98 12/31/18 18:34 83 133/74 96 12/31/18 18:32 91 H 94 12/31/18 18:29 82 98 12/31/18 18:24 98 H 98 12/31/18 18:19 95 H 98 12/31/18 18:14 90 98 12/31/18 18:09 88 97 12/31/18 18:04 83 97 12/31/18 17:59 85 96 12/31/18 17:54 93 H 97 12/31/18 17:49 94 H 96 12/31/18 17:44 101 H 87 12/31/18 17:39 83 98 12/31/18 17:34 114 H 156/96 97 12/31/18 17:29 98 H 97 12/31/18 17:24 92 H 98 12/31/18 17:19 82 98 12/31/18 17:14 84 98 12/31/18 17:09 87 98 12/31/18 17:04 88 97 12/31/18 16:59 92 H 98 12/31/18 16:54 82 98 12/31/18 16:49 88 98 12/31/18 16:44 82 98 12/31/18 16:39 86 99 12/31/18 16:34 82 144/79 98 12/31/18 16:29 95 H 97 12/31/18 16:28 105 H 89 12/31/18 16:24 89 96 12/31/18 16:19 90 98 12/31/18 16:14 97 H 97 12/31/18 16:09 85 96 12/31/18 16:04 87 97 12/31/18 16:02 86 89 19 15:59 84 95 12/31/18 15:54 90 96 12/31/18 15:51 89 92 12/31/18 15:49 77 96 12/31/18 15:43 85 97 12/31/18 15:38 84 96 12/31/18 15:34 90 147/88 12/31/18 15:33 89 98 12/31/18 15:28 92 H 98 12/31/18 15:23 89 96 12/31/18 15:18 83 98 12/31/18 15:13 91 H 97 12/31/18 15:08 87 96 12/31/18 15:03 97 H 92 12/31/18 14:58 87 98 12/31/18 14:53 85 97 12/31/18 14:48 87 97 12/31/18 14:45 95 H 90 12/31/18 14:43 93 H 98 12/31/18 14:38 77 98 12/31/18 14:36 93 H 89 12/31/18 14:34 81 140/65 12/31/18 14:33 88 97 12/31/18 14:28 105 H 97 12/31/18 14:23 94 H 96 12/31/18 14:18 96 H 97 12/31/18 14:13 100 H 97 12/31/18 14:08 90 98 12/31/18 14:03 87 98 12/31/18 13:58 89 98 12/31/18 13:53 85 97 12/31/18 13:48 87 97 12/31/18 13:43 86 97 12/31/18 13:38 88 97 12/31/18 13:34 85 130/77 12/31/18 13:33 75 96 12/31/18 13:28 93 H 96 12/31/18 13:23 86 97 12/31/18 13:18 71 96 12/31/18 13:13 84 97 12/31/18 13:08 85 96 12/31/18 13:03 94 H 97 12/31/18 12:58 92 H 97 12/31/18 12:53 91 H 96 12/31/18 12:48 97 H 97 12/31/18 12:44 101 H 94 12/31/18 12:43 96 H 95 12/31/18 12:38 93 H 96 12/31/18 12:34 89 130/77 12/31/18 12:33 89 96 12/31/18 12:28 100 H 96 Intake and Output 12/31/18 01/01/19 01/01/19 23:59 07:59 15:59 Intake Total 480 Output Total 1200 1800 Balance -1200 -1320 Intake: Oral 480 Output: Urine 1200 1800 Indwelling 1800 Indwelling Catheter 1200 Other: Total, Intake Amount 480 Total, Output Amount 1200 - Exam Breasts: Present: normal Cardiovascular: Present: Regular rate, Normal S1 Lungs: Present: Clear to auscultation, Normal air movement Abdomen: Present: normal appearance, soft, normal bowel sounds. Absent: distention, tenderness, guarding Uterus: Present: normal, firm, fundal height below umbilicus. Absent: bogginess, tenderness Extremities: Present: normal Deep Tendon Reflex Grade: Normal +2 Incision: Present: normal, dry, intact - Labs Labs: Abnormal lab results 12/31/18 12/31/18 01/01/19 Range/Units 15:10 21:12 09:46 WBC 14.0 H (4.5-11.0) K/mm3 RBC 3.63 L (3.65-5.03) M/mm3 Seg Neutrophils % 77.7 H (40.0-70.0) % Seg Neutrophils # 10.8 H (1.8-7.7) K/mm3 Magnesium 3.50 H 3.50 H (1.7-2.3) mg/dL
[2019-01-01 18:37] LABS: Bacteria,Urine 1+ /HPF (Negative); Bilirubin,Urine NEG (Negative); Blood,Urine LG (Negative); Color,Urine Yellow (Yellow); Hyaline Casts,Urine 2 /LPF; Mucus,Urine FEW /HPF; Protein,Urine <15 mg/dL mg/dL (Negative); Urobilinogen,Urine < 2.0 mg/dL (<2.0)
[2019-01-02] MEDS: IBUPROFEN 800 MG TAB PO PRN ×2 (05:55→23:02)
[2019-01-02] MEDS: FERROUS SULFATE 325 MG TAB PO SCH (09:48)
--- NOTE | 2019-01-02 13:34 | Progress Note ---
Assessment and Plan POD3 s/p primary LTCS and gestational HTN Mild anemia Occasional mild range BP Discharge to home today Subjective - Subjective Date of service: 01/02/19 Principal diagnosis: Primary [facility] Interval history: Pt is POD3 s/p primary for non-reassuring FHT, gestational HTN, s/p mag sulfate Patient reports: appetite normal, voiding normally, pain well controlled, flatus, ambulating normally [place]: doing well, bottle feeding (minimal breast feeding) Objective - Vital Signs Latest vital signs: Vital Signs Temp Pulse Resp BP 01/02/19 08:20 98.0 F 71 18 136/89 01/02/19 00:00 98.6 F 71 18 105/64 01/01/19 17:18 99.1 F 90 18 138/87 Intake and Output 01/01/19 01/02/19 01/02/19 23:59 07:59 15:59 Intake Total 780 400 480 Balance 780 400 480 Intake: Oral 480 400 480 Intake, Free Water 300 Other: Total, Intake Amount 480 200 480 # Voids Void 1 1 - Exam Lungs: Present: Normal air movement Abdomen: Present: soft Uterus: Present: firm, fundal height at umbilicus Extremities: Present: normal Incision: Present: normal, dry, intact
--- NOTE | 2019-01-02 13:40 | Discharge Summary ---
Providers - Providers Date of Admission: 12/29/18 16:20 Date of discharge: 01/02/19 Attending physician: GIAN BERGER Primary care physician: CHRISTI GIL Hospitalization Reason for admission: induction of labor (for preeclampsia with severe features) Delivery: Procedure: primary low transverse (for non-reassuring FHT) Episiotomy: none Laceration: none Incision: normal, dry, intact Other procedures: none Discharge diagnosis: IUP at term delivered Hospital course: Pt arrived with headache and was noted to have severe range BP. She was admitted for mag sulfate infusion and IOL given diagnosis of preeclampsia. She progressed to 8cm dilatation and then developed non-reassuring FHT. She underwent a primary LTCS. course uncomplicated. Condition at discharge: Good Disposition: DC-01 TO HOME OR SELFCARE Plan - Discharge Medications Prescriptions: Ferrous Sulfate [Ferrous Sulfate 324 MG] 324 mg PO BID #60 tablet. Ibuprofen [Motrin] 600 mg PO Q6H PRN #60 tablet PRN Reason: Pain - Provider Discharge Summary Activity: routine, no sex for 6 weeks, no heavy lifting 4 weeks, no strenuous exercise Diet: routine Instructions: routine Additional instructions: [] Smoking cessation referral if applicable(refer to patient education folder for contact #) [] Refer to [facility] Booklet Call your doctor immediately for: * Fever > 100.5 * Heavy vaginal bleeding ( >1 pad per hour) * Severe persistent headache * Shortness of breath * Reddened, hot, painful area to leg or breast * Drainage or odor from incision. * Keep incision clean and dry at all times and follow doctor's instructions regarding bathing/showering - Follow up plan Follow up: GIAN BERGER MD [Staff Physician] - 7 Days
[2019-01-02] MEDS: oxyCODONE /ACETAMINOPHEN 5-325MG TAB PO PRN (18:51)
[2019-01-03] MEDS: oxyCODONE /ACETAMINOPHEN 5-325MG TAB PO PRN (04:25)
[2019-01-03] MEDS: FERROUS SULFATE 325 MG TAB PO SCH (09:39)
[2019-01-03] MEDS: IBUPROFEN 800 MG TAB PO PRN (11:51)
[2019-01-03 16:15] VITALS: BP 138/85
== END 2019-01-03 16:15 | disposition home or self-care (01) | DRG 766 ==
LOC: TRG 13:59 → LD 16:20 → OB 01-01 05:21
PROVIDERS: ADMIT Obstetrics & Gynecology; ATTEND Obstetrics & Gynecology
PROC: 3E0P7VZ Introduction of Hormone into Female Reproductive, Via Natural or Artificial Opening (ICD-10-PCS; 2018-12-29)
PROC: 10D00Z1 Extraction of Products of Conception, Low, Open Approach (ICD-10-PCS; principal; 2018-12-30)
PROC: 3E0234Z Introduction of Serum, Toxoid and Vaccine into Muscle, Percutaneous Approach (ICD-10-PCS; 2019-01-01)
PROC: 3E0134Z Introduction of Serum, Toxoid and Vaccine into Subcutaneous Tissue, Percutaneous Approach (ICD-10-PCS; 2019-01-01)
DX: O99.824 Streptococcus B carrier state complicating childbirth (principal); O99.214 Obesity complicating childbirth; O76 Abnormality in fetal heart rate and rhythm complicating labor and delivery; O14.14 Severe pre-eclampsia complicating childbirth; O69.81X0 Labor and delivery complicated by cord around neck, without compression, not applicable or unspecified; O13.4 Gestational [pregnancy-induced] hypertension without significant proteinuria, complicating childbirth; O99.03 Anemia complicating the puerperium; Z23 Encounter for immunization; Z83.3 Family history of diabetes mellitus; Z82.49 Family history of ischemic heart disease and other diseases of the circulatory system; Z80.9 Family history of malignant neoplasm, unspecified; Z88.8 Allergy status to other drugs, medicaments and biological substances; Z3A.37 37 weeks gestation of pregnancy; Z37.0 Single live birth
CPT/HCPCS: 36415; 81001; 82565; 83615; 83735; 84450; 84460; 84550; 85025; 85027; 86850; 86900; 86901; 88307; 90707; G0378; A6250; J0290; J0595; J0690; J1885; J2405; J2590; J2765; J3475; J3490; J7030; J7120